=== PATIENT | male | born 1980 | race Two or more races ===

== ENCOUNTER 2016-10-20 17:33 | Emergency (ER) | payer OTHER ==
[~2016-10-20] VITALS: Ht 160 cm; Wt 93.6 kg
[2016-10-20 17:35] VITALS: BP 146/93
[2016-10-20] MEDS ORDERED: HYDROcodone/APAP 5/325 TABLET ONE (18:28)
[2016-10-20] MEDS ORDERED: HYDROcodone/APAP 5/325 TABLET PO ONE (18:30)
== END 2016-10-20 20:00 | disposition home or self-care (01) ==
LOC: ED 18:27
DX: S80.12XA Contusion of left lower leg, initial encounter (principal); W01.0XXA Fall on same level from slipping, tripping and stumbling without subsequent striking against object, initial encounter; Y93.11 Activity, swimming; Y92.34 Swimming pool (public) as the place of occurrence of the external cause; Y99.8 Other external cause status
CPT/HCPCS: 99284